=== PATIENT | female | born 1995 | race Caucasian/White ===

== ENCOUNTER → 2021-03-06 16:29 | Outpatient (BNVA) | payer OTHER, SELFPAY | PROVIDERS: Family Provider Pediatrics Adolescent Medicine; PCP Nurse Practitioner Family; Visit Provider Nurse Practitioner Family | DX: R10.9 Unspecified abdominal pain (principal); R10.31 Right lower quadrant pain; R10.2 Pelvic and perineal pain | CPT/HCPCS: 80053; 81000; 81025; 85025; 86140 ==

== ENCOUNTER → 2021-03-14 08:43 | Outpatient (BNVA) | payer OTHER, SELFPAY | PROVIDERS: Family Provider Pediatrics Adolescent Medicine; PCP Nurse Practitioner Family; Visit Provider Nurse Practitioner Family | DX: R10.2 Pelvic and perineal pain (principal); R10.31 Right lower quadrant pain | CPT/HCPCS: 81003 ==